=== PATIENT | male | born 1990 | race Caucasian/White ===

== ENCOUNTER 2016-09-27 18:00 | Inpatient (IN) | payer OTHER ==
--- NOTE | ~2016-09-27 | A ---
[facility] Nutrition Therapy DATE: 09/29/16 Patient: TOBI RICHTER Physician: FRANK Address: [address] Room/Bed: [facility], Zip: [place] [address] Admit Date: 09/27/16 Date of : [birth year] Height: 6 3 Weight: 139 63.44306 NUTRITIONAL ASSESSMENT: REASON: LOW BMI (17.5-18.7), UNINTENTIONAL WEIGHT LOSS PATIENT ADMITTED FOR METH AND HEROIN DETOX PMH: WITHDRAWAL SEIZURES Anthropometrics: HT: 6'3", WT: 140-150#, BMI: 17.5-18.7 Labs: 09/28/16- NUTRITIONAL LABS WNL Meds: DETOX PROTOCOL Assessment: PATIENT IS A 26 Y/O MALE ADMITTED FOR HEROIN AND METH DETOX. PATIENT IS CURRENTLY UNEMPLOYED, HOMELESS (X 1 MONTH), SMOKES 1 PPD, HAS DAILY HEROIN USE AND WEEKLY METH USE. IT IS NOTED THAT PATIENT RELAPSED 3 MONTHS AGO. UPON ADMIT PATIENT STATED A POOR APPETITE WITH A 15# WEIGHT LOSS OVER LAST SEVERAL WEEKS, AND HE HAS NOT BEEN SLEEPING. NURSING REPORTS FAIR PO INTAKES. PATIENT'S WEIGHT PER MD NOTES AND MEDITECH ARE LISTED AT 140# AND 150#. WILL REQUEST A RE-WEIGHT. THIS RD SUSPECTS WEIGHT AND APPETITE WILL STABILIZE AND POSSIBLY INCREASE FOLLOWING DETOX. THERE ARE NO GI OR SKIN ISSUES NOTED ATT. PATIENT IS ON A REGULAR DIET WITH NO CAFFEINE. Dx: UNINTENTIONAL WEIGHT LOSS R/T CURRENT CONDITION, DETOX AEB SELF-REPORTED WEIGHT LOSS AND DECREASED APPETITE, NUTRITIONAL RISK POINT, LOW BMI Intervention: REGULAR DIET, NO CAFFEINE, MEDS PER MD, PSYCH, DETOX Monitoring, Evaluation and Goals: 1. ADEQUATE PO INTAKES >50% OF MEALS 2. PREVENT, CORRECT MICRO/MACRO NUTRIENT DEFICIENCIES 3. PROMOTE A STEADY WEIGHT GAIN TOWARDS A HEALTHY BMI OF 19-25 MONITOR: WEIGHTS, LABS, PO/FLUID INTAKES Recommendations: 1. CONTINUE REGULAR DIET WITH NO CAFFEINE TOLERATED. OFFER SNACKS BETWEEN MEALS. WILL ORDER LARGE PORTION ENTREES D/T NUTRITIONAL NEED FOR INCREASED CALORIC INTAKE 2. ENCOURAGE ADEQUATE PO AND FLUID INTAKES 3. OBTAIN RE-WEIGHT. CONTINUE TO WEIGHT PATIENT REGULARLY (EVERY 3-4 DAYS) 4. IF PO INTAKES ARE BELOW 50% OF MEALS PLEASE ORDER ENSURE BID TO PROMOTE ADEQUATE KCAL [facility] Nutrition Therapy DATE: 09/29/16 Patient: TOBI RICHTER Physician: FRANK [address] [facility] Room/Bed: [address], Zip: [place] [address] Admit Date: 09/27/16 Date of : [birth year] Height: 6 3 Weight: [address] TO F/U PER PROTOCOL AND PRN R/T PATIENT MILDLY COMPROMISED Respectfully, ADA RAY RD, LD Food and Nutritional Services [facility] cc: client file
--- NOTE | ~2016-09-27 | PN ---
Unit #: [id number] #: [id number] Patient: TOBI RICHTER [id number] [facility] [address] [place] [address] [id number] I MR#: [id number] NAME: TOBI RICHTER ROOM: 81 Age: 26 Sex: M Admission Date: 09/27/2016 : 1990 Attending Physician: Michoacano Hsieh M.D. Admitting Physician: Michoacano Hsieh M.D. Primary Care Physician: Primary Care Physician Kailyn JUAN PROGRESS NOTES DATE OF SERVICE: 09/29/2016 DISCUSSION Mr. Hopkins is a 26-year-old male, seen on 09/29/2016. The patient interviewed, chart reviewed, obtained information from nursing staff. The patient withdrawn, isolative, flat affect, guarded. The patient's vital signs; temperature 98.4, pulse 72, respirations 16, blood pressure 114/77. The patient dressed in hospital attire, still seclusive and isolative. REVIEW OF SYSTEMS Complete review of systems unremarkable. MENTAL STATUS EXAMINATION General appearance, the patient dressed casually. Attention span and concentration, fair. Oriented in place and person. Mood and affect, labile. Speech, monotone. Thought process, concrete. The patient denied any thoughts of harming self or others, but withdrawn isolative, flat affect, guarded. Recent and remote memory, poor. Insight and judgment, poor. DIAGNOSES 1. Opioid use disorder, severe. 2. Amphetamine use disorder, severe. ASSESSMENT AND PLAN Advised to continue with current treatment and therapeutic protocol. If needed, consider further adjustment of medication. Dictated by... Tamara Brown/lilli TD: 09/29/2016 23:56 JOB #: [id number] Unit #: [id number] #: [id number] Patient: TOBI RICHTER PEATRAVON PROGRESS NOTES Page 1 of 1 X Michoacano Hsieh MD PROGRESS NOTE
--- NOTE | ~2016-09-27 | PN ---
Unit #: [id number] #: [id number] Patient: TOBI GRACE [id number] [facility] [address] [place] [address] [id number] I MR#: [id number] NAME: TOBI GRACE ROOM: P181 Age: 26 Sex: M Admission Date: 09/27/2016 : 1990 Attending Physician: Michoacano Hsieh M.D. Admitting Physician: Michoacano Hsieh M.D. Primary Care Physician: Primary Care Physician Kailyn JUAN PROGRESS NOTES DATE 09/30/2016 DISCUSSION Mr. Tobi Grace is a 26-year-old male. Patient pleasant, cooperative but reported trouble sleeping, withdrawing from alcohol, opiate, compliant, cooperative, maintain safe behavior, isolative, seclusive. Complete review of system unremarkable. MENTAL STATUS EXAMINATION General appearance, patient dressed casually. Attention span, concentration fair. Oriented in time, place and person. Mood and affect labile. Speech monotone. Thought process concrete. Patient denied any thoughts of harming self or others. Recent and remote memory poor. Insight and judgement poor. DIAGNOSES 1. Opiate use disorder, severe. 2. Amphetamine use disorder, moderate. ASSESSMENT/PLAN Advised to continue with current medication with plan to stop trazodone and start doxepin 100 mg at bedtime for sleep. If needed, consider further adjustment of medication. Dictated by... Tamara Brown/gurjit TD: 10/01/2016 20:05 JOB #: [id number] Unit #: [id number] #: [id number] Patient: TOBI GRACE PROGRESS NOTES Page 1 of 1 X Michoacano Hsieh MD X PROGRESS NOTE
--- NOTE | ~2016-09-27 | PN ---
Unit #: [id number] #: [id number] Patient: TOBI RICHTER [id number] [facility] [address] [place] [address] [id number] I MR#: [id number] NAME: TOBI RICHTER ROOM: P181 Age: 26 Sex: M Admission Date: 09/27/2016 : 1990 Attending Physician: Michoacano Hsieh M.D. Admitting Physician: Michoacano Hsieh M.D. Primary Care Physician: Primary Care Physician Kailyn JUAN PROGRESS NOTES DATE 09/28/2016 DISCUSSION Tobi is a 26-year-old male seen on 09/28/2016. The patient interviewed, chart reviewed. Obtained information from nursing staff. The patient withdrawn, isolative, flat affect, sad, dysphoric mood, anxious, nervous having withdrawal symptoms from opiates and meth. The patient adjusting fairly well to unit rules. Vital 94, 16, 136/82. Complete review of systems unremarkable. MENTAL STATUS EXAMINATION General appearance, the patient dressed casually. Attention span and concentration fair. Oriented to place and person. Mood and affect labile. Speech monotone. Thought process concrete. The patient denied any thoughts of harming self or others. Recent and remote memory poor. Insight and judgement poor. DIAGNOSES Opiate use disorder severe. Amphetamine use disorder severe. ASSESSMENT/PLAN Advise to continue with current medication and therapeutic protocol. If needed consider further adjustment of medication. Dictated by... Tamara Brown/angela TD: 09/30/2016 04:39 JOB #: [id number] Unit #: [id number] #: [id number] Patient: TOBI RICHTER PEATRAVON PROGRESS NOTES Page 1 of 1 X Michoacano Hsieh MD X PROGRESS NOTE
--- NOTE | ~2016-09-27 | DS ---
Unit #: [id number] #: [id number] Patient: TOBI RICHTER [id number] [facility] [address] [place] [address] [id number] I MR#: [id number] NAME: TOBI RICHTER ROOM: [facility] Age: 26 Sex: M Admission Date: 09/27/2016 : 1990 Discharge Date: 10/01/2016 Attending Physician: Michoacano Hsieh M.D. Primary Care Physician: Primary Care Physician No DISCHARGE SUMMARY REASON FOR ADMISSION Substance abuse. DIAGNOSTIC STUDIES LABORATORY RESULTS: Unremarkable except urine drug screen positive for amphetamine and opioids. HOSPITAL COURSE The patient was admitted to inpatient unit on 09/27/2016 and discharged on 10/01/2016. The patient was treated with group therapy, individual therapy, expressive therapy, chemical dependency group, detox protocol, and detox monitoring. The patient was responsive to treatment. Subsequently, the patient was discharged with a plan to follow up in outpatient clinic. DISCHARGE MEDICATIONS Seroquel 100 mg at bedtime for mood and sleep symptoms. DISCHARGE DIAGNOSES Psychiatric: Opioid use disorder, severe, F11.20; amphetamine use disorder, severe, F15.20. Secondary diagnosis: Deferred. Medical diagnosis: None. Stressors: Psychosocial stressors. DISCHARGE INSTRUCTIONS The patient to follow up in outpatient clinic as per vp digital marketing social media and crm. CONDITION ON DISCHARGE The patient was pleasant and cooperative. Denied any psychotic symptom or any suicidal ideation. PROGNOSIS Guarded. DIET AND ACTIVITY As tolerated. Dictated by... Unit #: [id number] #: [id number] Patient: TOBI RICHTER Tamara Brown/lilli TD: 10/01/2016 20:18 JOB #: [id number] DISCHARGE SUMMARY Page 1 of 1 X Michoacano Hsieh MD X DISCHARGE SUMMARY
--- NOTE | ~2016-09-27 | PA ---
Unit #: [id number] #: [id number] Patient: TOBI RICHTER [id number] [facility] [address] [place] [address] [id number] I MR#: [id number] NAME: TOBI RICHTER ROOM: P181 Age: 26 Sex: M Admission Date: 09/27/2016 : 1990 Date of Assessment: Attending Physician: Michoacano Hsieh M.D. Admitting Physician: Michoacano Hsieh M.D. Primary Care Physician: Primary Care Physician No PSYCHIATRIC ASSESSMENT INFORMANTS The patient's reliability, fair; chart reliability, good. CHIEF COMPLAINT Substance abuse. HISTORY OF PRESENT ILLNESS Tobi is a 26-year-old male, seen on with the above-mentioned complaint. The patient presented with girlfriend of 9 months for opioid abuse disorder. The patient reported using meth daily. The patient reported using 1 g of heroin IV. The patient reported last use 3 months ago, reported meth abuse 3 days weekly 20 to 30 dollars worth. The patient denied any suicidal or homicidal ideation. Denied any psychotic symptom. The patient currently unemployed, has 2 years of college, living off on street, needing help for psychiatric stabilization and for detox. The patient reported tobacco use, age of onset 20; opioid, age of onset 17; amphetamine, age of onset 25. Last period of sobriety 6 months ago and longest period of sobriety in 2016. History of blackout, history of hepatitis, withdrawal symptom, IV drug use, complaining of abdominal cramping, muscle cramping, diaphoresis, diarrhea, headache, irritability, nervousness, poor appetite, concentration, restlessness, sleep problems. PAST PSYCHIATRIC HISTORY Remarkable for history of rehab at [facility] in 2016. No history of any suicide attempt. FAMILY HISTORY AND SOCIAL HISTORY The patient has a poor support system, currently homeless. No history of abuse. No legal charges. MEDICAL HISTORY Unremarkable for any chronic medical illness. Musculoskeletal; muscle strength and tone, no atrophy or abnormal movement. Gait normal. MEDICATION HISTORY None. ALLERGIES No known drug allergies. SUBSTANCE ABUSE HISTORY Please see above. Unit #: [id number] #: [id number] Patient: TOBI RICHTER REVIEW OF SYSTEMS HEENT: Eyes, clear. Ears, nose, mouth, and throat; clear. CARDIOVASCULAR: Unremarkable. RESPIRATORY: Unremarkable. GI: Unremarkable. : Unremarkable. SKIN: Unremarkable. LYMPH NODE: Unremarkable. NEUROLOGIC: Unremarkable. ENDOCRINE: Unremarkable. HEMATOLOGIC: Unremarkable. ALLERGIC/IMMUNOLOGIC: Unremarkable. MUSCULOSKELETAL: Muscle strength and tone, no atrophy or abnormal movement. Gait normal. MENTAL STATUS EXAMINATION CONSTITUTIONAL: Measurement of vital signs; temperature 98.2, pulse 68, respirations 16, oxygen saturation 98%, and blood pressure 112/75. Height 6 feet 3 inches, weight 140 pounds. GENERAL APPEARANCE: The patient dressed casually. No facial deformity noted. MUSCULOSKELETAL: Please see above. PSYCHIATRIC EXAMINATION Description of speech; regular rate, normal volume. Description of thought process, goal directed. Description of association, intact. Description of abnormal psychotic thinking; the patient denied any hallucination or delusions, but sad, depressed mood, substance abuse. Description of the patient's judgment; concerning everyday activity, poor. Social situation, poor. Concerning psychiatric condition, poor. Complete mental status examination; oriented in time, place, and person. Recent and remote memory, fair. Attention span and concentration, fair. Language, able to name object and repeat phrases. Fund of knowledge, aware of current event and passive vocabulary intact. Mood and affect, sad and dysphoric. Insight and judgment, fair to poor. ASSETS AND LIABILITIES Assets; the patient articulate, able to take care of his ADL. Liability; history of substance abuse. ADMITTING DIAGNOSES Psychiatric: Opioid use disorder, severe, F11.20; amphetamine use disorder, severe, F15.20. Secondary diagnosis: Deferred. Medical diagnosis: None. Stressors: Psychosocial stressors. PSYCHIATRIC PLAN AND TREATMENT GOAL 1. Advised to admit the patient on the inpatient unit. Provide safe, supportive, and structured environment. 2. Ordered labs; CBC, CMP, UA, and UDS. 3. Detox protocol, detox monitoring. We will also get a medical consultation for the patient has skin lesions. Unit #: [id number] #: [id number] Patient: TOBI RICHTER 4. Treatment goal to attain euthymic mood, gain insight into his problem, and learn coping skills. DISCHARGE PLAN Plan to stabilize the patient and consider followup in outpatient program. ESTIMATED LENGTH OF STAY 3 to 5 days. Dictated by... Michoacano Hsieh M.D. EVELYNE/lilli TD: 09/29/2016 00:57 JOB #: [id number] PSYCHIATRIC ASSESSMENT Page 1 of 1 X Michoacano Hsieh MD PSYCHIATRIC ASSESSMENT
--- NOTE | ~2016-09-27 | HP ---
Unit #: [id number] #: [id number] Patient: TOBI RICHTER [id number] [place] [address] [id number] I MR#: [id number] NAME: TOBI RICHTER ROOM: P181 Age: 26 Sex: M Admission Date: 09/27/2016 : 1990 Attending Physician: Michoacano Hsieh M.D. Admitting Physician: Michoacano Hsieh M.D. Primary Care Physician: Primary Care Physician No HISTORY AND PHYSICAL HISTORY OF PRESENT ILLNESS The patient is a 26-year-old male, admitted to [facility] on 09/27/2016, for opiate and methamphetamine abuse. PAST MEDICAL HISTORY The patient denies. PAST SURGICAL HISTORY The patient denies. ALLERGIES No known drug allergies. SOCIAL HISTORY He is unemployed and homeless. He smokes one pack of cigarettes daily. He uses a gram of heroin per day and methamphetamines two times per week. FAMILY MEDICAL HISTORY Noncontributory. REVIEW OF SYSTEMS CONSTITUTIONAL: No fever or chills. HEENT: Denies any sore throat, ear pain or runny nose. CARDIOVASCULAR: Denies chest pain, irregular heart rhythm or palpitations. CHEST: Denies shortness of breath or cough. No hemoptysis. GASTROINTESTINAL: Denies nausea, vomiting, diarrhea or chronic constipation. ENDOCRINE: Denies history of increased thirst or urination. No recent significant weight loss or gain. GENITOURINARY: Denies dysuria, frequency, or hematuria. SKIN: Denies any rashes. HEMATOLOGIC: Denies history of increased bleeding or bruising. MUSCULOSKELETAL: Denies any hot, swollen joints. No generalized muscle pain. NEUROLOGIC: Denies problems with vision or speech. No frequent, severe headaches. No numbness, tingling or weakness in any extremities. Denies loss of bladder or bowel control. CURRENT MEDICATIONS The patient is not on any home medications. PHYSICAL EXAMINATION GENERAL: Awake, alert, and oriented, and in no acute distress. Unit #: [id number] #: [id number] Patient: TOBI RICHTER VITAL SIGNS: Temperature 97.0, heart rate 94, respirations 16, blood pressure 136/82. HEIGHT: 6 feet 3 inches. WEIGHT: 150 pounds. SKIN: Warm and dry without rash or lesion. HEENT: Normocephalic. TMs not viewed. Oral and nasal passages clear. Conjunctivae clear. PERRLA. EOMs intact. NECK: Supple without lymphadenopathy or thyromegaly. HEART: Regular rate and rhythm without murmur. LUNGS: Clear. ABDOMEN: Soft, nontender. : Not done. EXTREMITIES: No evidence of cyanosis, clubbing or edema. Moves all without focal deficit. NEUROLOGICAL: Grossly within normal limits. Cranial Nerves: II: Visual brooke are intact. III, IV AND : Extraocular movements are intact. Pupils are equal, round and reactive to light. V: Facial sensation is grossly normal. VII: Facial movements and expression are normal. VIII: Auditory acuity grossly intact. IX, X: Uvula is midline. Phonation is normal. XI: Patient shrugs shoulders and turns head normally. XII: Tongue protrudes in the midline. Sensory and Motor Function: Sensory and motor sensation is grossly normal. Motor: moves all extremities well. Coordination: Gait is normal. Deep Tendon Reflexes: Intact. IMPRESSION 1. Psychiatric admission. 2. Drug abuse. 3. Nicotine dependence. RECOMMENDATIONS Psychiatric, per psychiatrist. MEDICAL no contraindications to participating in facility's activities. MEDICAL PROGNOSIS Good. MEDICAL CONDITION Stable. Dictated by... Stefan Amaya/elvis TD: 09/29/2016 05:45 JOB #: [id number] Unit #: [id number] #: [id number] Patient: TOBI RICHTER HISTORY AND PHYSICAL Page 1 of 1 X COCO PEREZ APRN HISTORY AND PHYSICAL
[~2016-09-27 18:00] MED LIST: ALBUTEROL17 GM INH; AMOXICILLIN500 M1; DOXYCYCLINE150 MG PO; FELDENE20 MG PO; GUAIFENESIN400 MG PO; NO MEDICATIONS; PHENERGAN DM1 ML PO; PREDNISONE PO
[2016-09-28 13:53] LABS: BASOPHIL% 0.6 % (0-2.5); EOSINOPHIL# 0.2 X10e3 (0-0.7); EOSINOPHIL% 3.4 % (0.0-7.0); HEMATOCRIT 40.7 % (38.0-50.0); HEMOGLOBIN 13.7 gm/dL (13.0-16.0); LYMPHOCYTE# 1.5 X10e3 (1.0-3.5); LYMPHOCYTE% 28.3 % (17.0-45.0); MEAN CELL VOLUME 89.2 FL (83-96); MEAN CORPUSCULAR HEMOGLOBIN 30.1 PG (28-34); MEAN CORPUSCULAR HGB CONC 33.7 g/dL (30-36); MEAN PLATELET VOLUME 8.5 FL (6.5-11.5); MONOCYTE# 0.3 X10e3 (0-1.0); MONOCYTE% 5.6 % (3.0-12.0); NEUTROPHIL# 3.2 X10e3 (1.5-7.1); NEUTROPHIL% 62.1 % (40-75); PLATELET COUNT 229 X10e3 (140-420); RED BLOOD COUNT 4.56 X10e (3.90-5.60); RED CELL DISTRIBUTION WIDTH 13.7 % (11.0-15.5); WHITE BLOOD COUNT 5.1 X10e3 (4.0-10.5)
[2016-09-28 13:56] LABS: DIFF IND NO
[2016-09-28 14:13] LABS: ALBUMIN SERUM 3.8 g/dL (3.5-5.0); BILIRUBIN,TOTAL 0.9 mg/dL (0.2-2.0); BUN/CREATININE RATIO 14.28; CALCIUM SERUM 9.3 mg/dL (8.4-10.2); CREATININE SERUM 0.7 mg/dL (0.6-1.4); GLOM FILT RATE Estimated 129.4 mL/min (>60); POTASSIUM 4.3 mmol/L (3.5-5.1); PROTEIN TOTAL SERUM 6.6 g/dL (6.0-8.3)
[2016-09-29 09:49] LABS: URINE APPEARANCE CLEAR; URINE BILIRUBIN NEG (NEG); URINE BLOOD NEG (NEG); URINE COLOR YELLOW; URINE GLUCOSE NEG (NEG); URINE KETONE NEG (NEG); URINE LEUKOCYTE ESTERASE NEG (NEG); URINE NITRATE NEG (NEG); URINE PH 7.5 (5-8); URINE PROTEIN NEG (NEG); URINE SPECIFIC GRAVITY 1.008 (1.003-1.035)
[2016-09-29 11:29] LABS: AMPHETAMINE POS (NEG); BARBITURATES NEG (NEG); BENZODIAZEPINES NEG (NEG); COCAINE NEG (NEG); MARIJUANA NEG (NEG); OPIATES POS (NEG); TRICYCLIC ANTIDEPRESSANTS NEG (NEG); U METHADONE NEG (NEG)
== END 2016-10-01 09:00 | DRG 897 ==
LOC: P1E 19:06
PROVIDERS: Psychiatry & Neurology Psychiatry
PROC: HZ2ZZZZ Detoxification Services for Substance Abuse Treatment (ICD-10-PCS; principal; 2016-09-27)
DX: F11.20 Opioid dependence, uncomplicated (principal); F15.20 Other stimulant dependence, uncomplicated; F17.210 Nicotine dependence, cigarettes, uncomplicated; Z59.0 Homelessness
CPT/HCPCS: 80053; 80307; 81003; 85025; 86592